=== PATIENT | female | born 1985 | race Hispanic/Latino ===

== ENCOUNTER 2025-05-28 19:27 | Emergency (ER) | payer OTHER ==
[~2025-05-28] VITALS: Ht 172.7 cm; Wt 72.2 kg
[2025-05-28] MEDS: UNRESOLVED CLARIFICATION ENTRY XX SCH (00:01)
[2025-05-28] MEDS: TETANUS/DIPHTH/ACEL. PERTUSSIS 0.5 ML SYR IM.IMMUN ONE (20:03)
[2025-05-28] MEDS: LIDOCAINE 1% MDV 20 ML VIAL IM ONE (20:15)
[2025-05-28 20:55] VITALS: BP 131/61; TEMP 98.8; O2SAT 100
== END 2025-05-28 20:57 | disposition home or self-care (01) ==
LOC: M ED 19:27
DX: S61.212A Laceration without foreign body of right middle finger without damage to nail, initial encounter (principal); W26.0XXA Contact with knife, initial encounter; Y92.9 Unspecified place or not applicable; Y93.G1 Activity, food preparation and clean up; Y99.9 Unspecified external cause status; Z88.2 Allergy status to sulfonamides